=== PATIENT | male | born 1990 | race Caucasian/White ===

== ENCOUNTER → 2019-02-18 | Outpatient (CLI) | payer BC | END | disposition home or self-care (01) | LOC: LABWHC1 15:21 | PROVIDERS: ATTEND Orthopaedic Surgery | DX: M79.645 Pain in left finger(s) (principal); S63.24 Subluxation of distal interphalangeal joint of finger; S62.635D Displaced fracture of distal phalanx of left ring finger, subsequent encounter for fracture with routine healing | CPT/HCPCS: 36415; 82306 ==